=== PATIENT | male | born 1985 | race Caucasian/White ===

== ENCOUNTER 2016-07-30 09:38 | Emergency (ER) | payer BC ==
[~2016-07-30] VITALS: Ht 185.4 cm; Wt 82.0 kg
[~2016-07-30 09:38] MED LIST: CEPH500C PO; HYDR-3702 PO; TRM50T PO
[2016-07-30] MEDS ORDERED: ONDANSETRON 2 MG/ML (Z0FRAN) 2 ML VIAL IV ONE (09:45)
[2016-07-30] MEDS ORDERED: SODIUM CHLORIDE FLUSH 3 ML SYR IV ONE (09:45)
[2016-07-30] MEDS ORDERED: KETOROLAC 30 MG/ML (TORADOL) 1 ML VIAL IV ONE (09:45)
[2016-07-30] MEDS ORDERED: HYDROmorphone 1 MG/ML (DILAUDID) SYRINGE IV ONE ×2 (09:45→10:55)
[2016-07-30 09:56] LABS: BASOPHILS % (AUTO) 1 % (0-2); EOSINOPHILS # (AUTO) 0.2 10^3uL; EOSINOPHILS % (AUTO) 2 % (0-4); LYMPHOCYTES # (AUTO) 3.6 X10^3; MEAN CORPUSCULAR HEMOGLOBIN 29.5 PG (26.0-34.0); MEAN CORPUSCULAR VOLUME 82 FL (80-100); MEAN PLATELET VOLUME 10.4 FL (6.0-9.5); MONOCYTES # (AUTO) 0.7 X10^3; MONOCYTES % (AUTO) 7 % (3-11); NEUTROPHILS # (AUTO) 5.3 X10^3; NEUTROPHILS % (AUTO) 54 % (51-67); PLATELET COUNT 216 10^3uL (150-450); WHITE BLOOD COUNT 9.87 10^3uL (4.0-11.0)
[2016-07-30] MEDS: SODIUM CHLORIDE FLUSH 10 ML SYR IV PRN ×2 (10:04→10:58)
[2016-07-30 10:10] LABS: ALBUMIN 4.6 g/dL (3.4-5.0); ALKALINE PHOSPHATASE 66 U/L (38-126); ANION GAP 15.3 MEQ/L (3-15); BUN/CREATININE RATIO 17 (10-20); CALCULATED IONIZED CALCIUM 4.1 mg/dL (3.8-4.6); LIPASE* 58 U/L (23-300); TOTAL PROTEIN 7.6 g/dL (6.4-8.5)
--- NOTE | 2016-07-30 10:41 | Diagnostic Imaging Report ---
PROCEDURE: CT abdomen and pelvis without contrast. TECHNIQUE: Multiple contiguous axial images were obtained through the abdomen and pelvis without the use of intravenous contrast. INDICATION: The lung bases are clear. The liver appears unremarkable. The gallbladder appears normal. The pancreas, spleen and adrenal glands appear unremarkable. There is a 2-3 mm stone in the distal left ureter at the ureterovesical junction with mild left hydroureter and periureteric stranding. There is minimal to mild left caliectasis. There are additional scattered calculi within both kidneys. The right ureter appears unremarkable. The appendix appears normal. No bowel obstruction or additional inflammatory process is seen. There is no ascites or adenopathy. Abdominal aorta appears normal in caliber. No acute osseous abnormality is seen. IMPRESSION: 1. There is a 2-3 mm stone in the distal left ureter at the ureterovesical junction with mild obstructive changes. 2. Bilateral nephrolithiasis 3. No additional significant abnormalities demonstrated. Dictated by: Dictated on workstation # [id number]
[2016-07-30 10:43] LABS: BILIRUBIN,URINE Negative (Negative); CLARITY,URINE Clear; COLOR,URINE Dark Yellow; GLUCOSE, URINE (UA) Negative (Negative); LEUKOCYTE ESTERASE ,URINE Negative (Negative); UROBILINOGEN,URINE 0.2 mg/dL (0.2-1.0)
[2016-07-30] MEDS ORDERED: HYDR-3811 PO (10:56)
[2016-07-30] MEDS ORDERED: ONDA4TAB8 PO (10:56)
[2016-07-30 11:04] VITALS: BP 104/72
[2016-07-30 11:09] LABS: RBC,URINE None Seen /HPF; URINE CENTRIFUGED VOLUME 12 mL
== END 2016-07-30 11:22 | disposition home or self-care (01) ==
LOC: ED 09:52
DX: N13.2 Hydronephrosis with renal and ureteral calculous obstruction (principal)
CPT/HCPCS: 36415; 74176; 80053; 81003; 81015; 83690; 85025; 86140; 96361; 96374; 96375; 96376; 99283; J1170; J1885; J2405; J7030